=== PATIENT | male | born 1990 | race Asian ===

== ENCOUNTER 2019-03-22 23:30 | Emergency (ER) | payer OTHER ==
[~2019-03-22] VITALS: Ht 188 cm; Wt 83.5 kg
[2019-03-22 23:36] VITALS: TEMP 98.5
[2019-03-22 23:59] LABS: PLATELET COUNT 113 K/uL (142-355)
[2019-03-23 00:26] LABS: POTASSIUM 3.5 mmol/L (3.6-5.2)
[2019-03-23 01:06] VITALS: BP 138/92
[2019-03-23] MEDS ORDERED: RISP50IN IM (04:46)
[2019-03-23] MEDS ORDERED: [UNRECOGNIZED DRUG - CODE] IR (04:47)
[2019-03-23] MEDS ORDERED: DIVALPROEX125 M1 PO (04:50)
[2019-03-23] MEDS ORDERED: PROVERA10 MG PO (04:51)
[2019-03-23] MEDS ORDERED: OXCARBAZEPIN150 MG PO (04:52)
[2019-03-23] MEDS ORDERED: RISP1TAB PO (04:53)
[2019-03-23] MEDS ORDERED: AMANTADINE100 M1 PO (04:55)
[2019-03-23] MEDS ORDERED: DIPH50IN INJ (04:57)
== END 2019-03-23 01:08 | disposition other institution (70) ==
LOC: ED 23:30
PROVIDERS: Emergency Medicine
DX: R46.89 Other symptoms and signs involving appearance and behavior (principal); F20.89 Other schizophrenia; Z04.6 Encounter for general psychiatric examination, requested by authority
CPT/HCPCS: 80053; 85027; 99285